=== PATIENT | male | born 1945 | race Caucasian/White ===

== ENCOUNTER → 2019-06-15 | Outpatient (CLI) | payer OTHER ==
--- NOTE | 2019-06-15 12:05 | 2DMMODE ---
[facility] [place] [place] [address] 2 D/M-MODE ECHOCARDIOGRAM Name: LORRI CONLEY Room #: REG CL [facility]#: [id number] Admission: 06/15/19 Attend Phys: Paul Friend MD Discharge: Date of : 47 Report #: [id number] THIS REPORT FOR: //name// APPROVED REPORT Study performed: 06/15/2019 11:20:31 EXAM: Comprehensive 2D, Doppler, and color-flow Echocardiogram Patient Location: Echo lab Status: routine BSA: 2.45 HR: 66 bpm BP: 122/58 mmHg Rhythm: NSR Other Information Study Quality: Technically Difficult Technically limited study due to body habitus. Indications Diabetes Hypertension/HDD 2D Dimensions RVDd: 35.30 mm IVSd: 13.48 (7-11mm) LVOT Diam: 24.76 (18-24mm) LVDd: 42.28 mm PWd: 13.64 (7-11mm) Ascending Ao: 32.20 (22-36mm) LVDs: 33.21 (25-40mm) Aortic Root: 30.98 mm IVC: 15.00 mm Volumes Left Atrial Volume (Systole) Single Plane 4CH: 46.02 mL Single Plane 2CH: 103.93 mL LA ESV Index: 30.00 mL/m2 Aortic Valve AoV Peak Deepak.: 1.36 m/s AO Peak Gr.: 7.40 mmHg LVOT Max P.68 mmHg LVOT Max V: 0.96 m/s BEVERLY Vmax: 3.40 cm2 Mitral Valve [facility] [address] [place] [address] 2 D/M-MODE ECHOCARDIOGRAM Name: LORRI CONLEY Room #: REG CL [facility]#: [id number] Admission: 06/15/19 Attend Phys: Paul Friend MD Discharge: Date of : 47 Report #: [id number] E/A Ratio: 0.8 MV Decel. Time: 298.01 ms MV E Max Deepak.: 0.65 m/s MV A Deepak.: 0.81 m/s MV PHT: 86.42 ms Pulmonary Valve PV Peak Deepak.: 1.15 m/s PV Peak Gr.: 5.33 mmHg Pulmonary Vein P Vein S: 0.47 m/s P Vein A: 0.20 m/s P Vein D: 0.29 m/s P Vein A Dur.: 156.9 msec P Vein S/D Ratio: 1.62 Tricuspid Valve RAP Estimate: 5.00 mmHg Left Ventricle The left ventricle is normal size. Mild concentric left ventricular hypertrophy. The left ventricular systolic function is normal. The left ventricular ejection fraction is within the normal range. LVEF is 55-60%. Mild diastolic dysfunction is present (impaired relaxation pattern). Right Ventricle The right ventricle is normal size. The right ventricular systolic function is normal. Atria The left atrium size is normal. The right atrium size is normal. Aortic Valve Aortic valve is mildly calcified. No aortic regurgitation is present. There is no aortic valvular stenosis. Mitral Valve The mitral valve is normal in structure. There is no mitral valve regurgitation noted. No evidence of mitral valve stenosis. Tricuspid Valve The tricuspid valve is normal in structure. There is no tricuspid valve regurgitation noted. Unable to assess PA pressure. Pulmonic Valve The pulmonary valve is normal in structure. Trace pulmonic [facility] [place] [place] [address] 2 D/M-MODE ECHOCARDIOGRAM Name: LORRI CONLEY Room #: REG CL [facility]#: [id number] Admission: 06/15/19 Attend Phys: Paul Friend MD Discharge: Date of : 47 Report #: [id number] regurgitation. Great Vessels The aortic root is normal in size. IVC is normal in size and collapses >50% with inspiration. Pericardium There is no pericardial effusion. <Conclusion> The left ventricle is normal size. LVEF is 55-60%. Aortic valve is mildly calcified. The mitral valve is normal in structure. The tricuspid valve is normal in structure. There is no tricuspid valve regurgitation noted. Unable to assess PA pressure. The pulmonary valve is normal in structure. Trace pulmonic regurgitation. There is no pericardial effusion. <ELECTRONICALLY SIGNED> By: Elier Lynn MD 06/15/19 1205 1205 04 Elier Lynn MD /INF
== END ==
LOC: CV 10:02
DX: I35.8 Other nonrheumatic aortic valve disorders (principal); E11.9 Type 2 diabetes mellitus without complications; I25.10 Atherosclerotic heart disease of native coronary artery without angina pectoris; I11.9 Hypertensive heart disease without heart failure

== ENCOUNTER → 2019-07-06 | Outpatient (CLI) | payer OTHER | LOC: ULTRA 09:47 | DX: I74.3 Embolism and thrombosis of arteries of the lower extremities (principal); E11.51 Type 2 diabetes mellitus with diabetic peripheral angiopathy without gangrene ==